=== PATIENT | male | born 1975 | race Caucasian/White ===

== ENCOUNTER 2017-07-11 15:48 | Emergency (ER) | payer OTHER ==
--- NOTE | 2017-07-11 16:16 | UC ---
Dental HPI - HPI Summary HPI Summary: Patient is an otherwise healthy 41-year-old male presenting to the with chief complaint of left lower molar erythema and drainage 5 days. He is unsure if the area is infected. Denies any fevers, sweats, chills. Denies any other symptoms. He is refusing vital signs on arrival. Has not been using any medication [id number] for relief. - History of Current Complaint Hx Obtained From: Patient Onset/Duration: Sudden Onset Severity: Mild Pain Intensity: 0 Pain Scale Used: 0-10 Numeric Related History: Swelling <Mary Lisa - Last Filed: 07/11/17 16:12> <Nikki Mooney - Last Filed: 07/11/17 16:39> - History of Current Complaint Chief Complaint: UCDentalProblem Stated Complaint: DENTAL COMPLAINT Time Seen by Provider: 07/11/17 15:51 - Allergies/Home Medications Allergies/Adverse Reactions: Allergies Allergy/AdvReac Type Severity Reaction Status Date / Time No Known Allergies Allergy Verified 07/11/17 16:00 PMH/Surg Hx/FS Hx/Imm Hx Previously Healthy: Yes - Surgical History Surgical History: None - Social History Occupation: Employed Full-time Lives: With Family Alcohol Use: None Substance Use Type: None Smoking Status (MU): Light Every Day Tobacco Smoker Type: Cigarettes Amount Used/How Often: 6 cigs/day Length of Time of Smoking/Using Tobacco: 10+ years Have You Smoked in the Last Year: Yes Household Exposure Type: Cigarettes - Immunization History Most Recent Tetanus Shot: 2010 <Mary Lisa - Last Filed: 07/11/17 16:12> Review of Systems Constitutional: Negative Skin: Negative Respiratory: Negative Cardiovascular: Negative Neurovascular: Negative Musculoskeletal: Negative Neurological: Negative Psychological: Negative Is Patient Immunocompromised?: No All Other Systems Reviewed And Are Negative: Yes <Mary Lisa - Last Filed: 07/11/17 16:12> Physical Exam Triage Information Reviewed: Yes Appearance: Well-Appearing, Well-Nourished Vital Signs Reviewed: Yes Eye Exam: Normal Eyes: Positive: Conjunctiva Clear ENT: Positive: Dental tenderness, Uvula midline. Negative: Tonsillar swelling, Tonsillar exudate, Sinus tenderness Dental Exam: Normal Neck exam: Normal Neck: Positive: Supple Respiratory Exam: Normal Respiratory: Positive: Chest non-tender Cardiovascular Exam: Normal Musculoskeletal Exam: Normal Musculoskeletal: Positive: Strength Intact Psychological: Positive: Normal Response To Family Skin Exam: Normal <Mary Lisa Nelida Yenifer Last Filed: 07/11/17 16:12> Dental Complaint Course/Dx - Course Course Of Treatment: There is a 1 cm in length ulceration to the left lower gumline just inferior to the left molars. There is no drainage identified. Erythema surrounding the area. This does not appear to be an aphthous ulcer, but rather a bacterial infection. Denies any fevers, sweats, chills. Patient is given penicillin upon request. - Differential Dx/Diagnosis Provider Diagnoses: Dental abscess <Sloan,Mary Krasue - Last Filed: 07/11/17 16:12> Discharge - Sign-Out/Discharge Documenting (check all that apply): Discharge/Admit/Transfer - Billing Disposition and Condition Condition: STABLE Disposition: HOME <Mary Lisa - Last Filed: 07/11/17 16:12> - Billing Disposition and Condition Condition: STABLE Disposition: HOME <Nikki Mooney - Last Filed: 07/11/17 16:39> - Discharge Plan Condition: Stable Disposition: HOME Prescriptions: Penicillin VK 500 MG TAB(NF) [Penicillin VK 500 mg Tab(NF)] 500 mg PO BID #10 tab MDD 4 Patient Education Materials: Dental Abscess (ED) Forms: *Work Release Referrals: No Primary Care Phys,NOPCP [Primary Care Provider] - Additional Instructions: Salt water rinses Antibiotic as prescribed Attestation Statement User Type: Provider - I was available for consult. This patient was seen by the [facility]ORGAN. The patient was not presented to, seen by, or examined by me. -Alonzo <Nikki Mooney - Last Filed: 07/11/17 16:39>
== END 2017-07-11 16:15 | disposition home or self-care (01) ==
LOC: UCEAST 15:48
DX: K04.7 Periapical abscess without sinus (principal); F17.210 Nicotine dependence, cigarettes, uncomplicated
CPT/HCPCS: 99202; G0463

== ENCOUNTER 2017-10-04 12:28 | Emergency (ER) | payer SELFPAY ==
[2017-10-04 12:40] VITALS: BP 00/00
--- NOTE | 2017-10-04 13:54 | UC ---
Skin Complaint HPI - HPI Summary HPI Summary: The patient is a 42-year-old male with a history of a rash on his trunk and arms times days. H he has recently started using a new detergent. She is pruritic. He has had no fever or chills or URI symptoms. E states that he is a long history of sensitive skin and often develops similar rashes. Is no chest pain shortness of breath or headache. - History of Current Complaint Chief Complaint: UCRas Time Seen by Provider: 10/04/17 13:45 Stated Complaint: RASH Hx Obtained From: Patient Onset/Duration: Gradual Onset Onset Severity: Mild Current Severity: Mild Pain Intensity: 0 Pain Scale Used: 0-10 Numeric Character: Pruritus, Redness, Raised Associated Signs & Symptoms: Positive: Rash - Allergy/Home Medications Allergies/Adverse Reactions: Allergies Allergy/AdvReac Type Severity Reaction Status Date / Time No Known Allergies Allergy Verified 10/04/17 12:41 Review of Systems Constitutional: Negative Skin: Rash Eyes: Negative ENT: Negative Respiratory: Negative Cardiovascular: Negative Gastrointestinal: Negative Genitourinary: Negative Motor: Negative Neurovascular: Negative Musculoskeletal: Negative Neurological: Negative Psychological: Negative Is Patient Immunocompromised?: No All Other Systems Reviewed And Are Negative: Yes PMH/Surg Hx/FS Hx/Imm Hx Previously Healthy: Yes - Surgical History Surgical History: None - Family History Known Family History: Positive: Hypertension - Social History Alcohol Use: None Substance Use Type: None Smoking Status (MU): Light Every Day Tobacco Smoker Type: Cigarettes Amount Used/How Often: 6 cigs/day Length of Time of Smoking/Using Tobacco: 10+ years Have You Smoked in the Last Year: Yes Household Exposure Type: Cigarettes - Immunization History Most Recent Tetanus Shot: 2010 Physical Exam Triage Information Reviewed: Yes Appearance: Well-Appearing, No Pain Distress, Well-Nourished Vital Signs: Initial Vital Signs Temp 0 F 10/04/17 12:36 Pulse 0 10/04/17 12:36 Resp 0 10/04/17 12:36 BP 00/00 10/04/17 12:36 Pulse Ox 0 10/04/17 12:36 Vital Signs Reviewed: Yes Eyes: Positive: Conjunctiva Clear ENT: Positive: Pharynx normal, Pharyngeal erythema, Nasal congestion, TMs normal Neck: Positive: Supple, Nontender Respiratory: Positive: Lungs clear, Normal breath sounds, No respiratory distress, No accessory muscle use Cardiovascular: Positive: RRR. Negative: Tachycardia, Bradycardia Bowel Sounds: Positive: Present Musculoskeletal: Positive: ROM Intact, No Edema Neurological: Positive: Alert Psychological Exam: Normal Skin Exam: Other - fine red papules Course/Dx - Course Course Of Treatment: refused VS - Diagnoses Provider Diagnoses: acute fine papular rash Discharge - Sign-Out/Discharge Documenting (check all that apply): Patient Departure - Discharge Plan Condition: Stable Disposition: HOME Prescriptions: predniSONE [Deltasone 20 MG TAB] 40 mg PO DAILY #14 tab Patient Education Materials: Acute Rash (ED) Referrals: No Primary Care Phys,NOPCP [Primary Care Provider] - Additional Instructions: recheck for new or worsening symptoms recheck in 4days if not improved - Billing Disposition and Condition Condition: STABLE Disposition: Home
== END 2017-10-04 13:56 | disposition home or self-care (01) ==
LOC: UCEAST 12:28
DX: R21 Rash and other nonspecific skin eruption (principal); Z82.49 Family history of ischemic heart disease and other diseases of the circulatory system; F17.210 Nicotine dependence, cigarettes, uncomplicated
CPT/HCPCS: 99212; G0463

== ENCOUNTER 2018-03-26 15:38 | Emergency (ER) | payer BC ==
[2018-03-26 15:47] VITALS: BP 126/76
--- NOTE | 2018-03-26 16:31 | UC ---
Throat Pain/Nasal Akhil HPI - HPI Summary HPI Summary: Patient presents to urgent care reporting had "cold" Pt state he felt better x 3days. X 2 days pt has increased sinus congestion, PND, and cough. Pt states coughing worse at night. States has a "very old" inhaler and it doesn't work. Pt denies fever, chills. No cp, sob except with coughing. Pt states coughing up green phelgm - unsure if from sinuses or lungs. PT does not blow nose, but is clearing throat a lot. + h/o asthma + tobacco no flu vaccine pt's medications reviewed this visit - History of Current Complaint Chief Complaint: UCRespiratory Stated Complaint: COUGH Time Seen by Provider: 03/26/18 16:03 Hx Obtained From: Patient Onset/Duration: Gradual Onset Severity: Mild Pain Intensity: 2 Pain Scale Used: 0-10 Numeric Cough: Sputum Appears - green Associated Signs & Symptoms: Positive: Wheezing, Sinus Discomfort, Nasal Discharge - Allergies/Home Medications Allergies/Adverse Reactions: Allergies Allergy/AdvReac Type Severity Reaction Status Date / Time No Known Allergies Allergy Verified 03/26/18 15:48 PMH/Surg Hx/FS Hx/Imm Hx Previously Healthy: Yes Respiratory History: Asthma - Surgical History Surgical History: None Surgery Procedure, Year, and Place: denies - Family History Known Family History: Positive: Hypertension - Social History Alcohol Use: None Substance Use Type: None Smoking Status (MU): Light Every Day Tobacco Smoker Type: Cigarettes Amount Used/How Often: 6 cigs/day Length of Time of Smoking/Using Tobacco: 10+ years Have You Smoked in the Last Year: Yes Household Exposure Type: Cigarettes - Immunization History Most Recent Tetanus Shot: 2010 Review of Systems All Other Systems Reviewed And Are Negative: Yes Constitutional: Positive: Fever, Fatigue ENT: Positive: Nasal Discharge, Sinus Congestion, Sinus Pain/Tenderness Respiratory: Positive: Cough Physical Exam - Summary Physical Exam Summary: Vital Signs Reviewed: Yes A+Ox3, no distress Eyes: Conjunctiva Clear, WAYNE. EOM intact and full ENT: Hearing grossly normal TM blocked with cerumen b/l - unable to visualize; turbinates inflammed and boggy + thick PND/yellow; pt clearing throat, mmmoist , uvula midline, no exudate, no erythema Neck: Positive: Supple Respiratory: Positive: No respiratory distress, No accessory muscle use + CTA throughout no w/r Cardiovascular: RRR nl s1, s2 no m/r CBT <2 sec abd soft + BS nt/nd no guarding, no distension Musculoskeletal Exam: MITCHELL x 4 without difficulty Strength Intact, ROM Intact Neurological: Positive: Alert, + sensation throughout Psychological: Positive: Normal Response To Family Skin: Positive: no rash, no ecchymosis Vital Signs: Initial Vital Signs Temp 99.0 F 03/26/18 15:43 Pulse 92 03/26/18 15:43 Resp 18 03/26/18 15:43 BP 126/76 03/26/18 15:43 Pulse Ox 98 03/26/18 15:43 Throat Pain/Nasal Course/Dx - Course Course Of Treatment: Patient with head cold improved. Patient now with return of head cold, low-grade fevers. Patient has had a history of asthma as well as tobacco use. On exam patient with thick sinus congestion with yellow-green posterior drip. Patient with mild rare cough. Lungs are clear. Vital signs are stable. Discussed with patient likely sinus cause of cough. Will refill albuterol as patient's is old and . Antibiotic. Discussed secretion precaution, humidified air. Patient has used Mucinex with good results in past - encouraged use again. Return precautions. Work note. Patient comfortable in agreement with plan. Pt with cerumen impaction bilaterally - declined offer for irrigation - will do at home - Differential Dx/Diagnosis Provider Diagnosis: Rhinosinusitis, Impacted cerumen of both ears Discharge - Sign-Out/Discharge Documenting (check all that apply): Patient Departure All imaging exams completed and their final reports reviewed: No Studies - Discharge Plan Condition: Stable Disposition: HOME Prescriptions: Albuterol HFA INHALER* [Ventolin HFA Inhaler*] 2 puff INH Q4H PRN #1 mdi PRN Reason: wheeze Amoxicillin PO (*) [Amoxicillin 875 MG (*)] 875 mg PO BID #20 tab Patient Education Materials: Rhinosinusitis (ED) Forms: *Gen. Provider Communication, *Work Release Referrals: [facility] [Outside] No Primary Care Phys,NOPCP [Primary Care Provider] - Additional Instructions: - Stay well hydrated. Drink plenty of non-alcoholic, non-caffinated beverages. - Alternate ibuprofen (Advil, Motrin) 600mg and Tylenol every 3 hours for pain or fever. Take with food. Do NOT take for more than 4-5 days. - These infections are spread by secretions - do NOT share eating or drinking utensils - clean items you share with other people such as cell phones, computer mouse, TV remote, computer tablets,etc. Once you have been antibiotics for 2 days, change your toothbrush and your pillowcase. - get plenty of restful sleep - humidify the air in the room where you sleep - boil water, run a hot steam shower, vaporizer, cups of water by heat register - okay to take over the counter decongestant and cough medication - use your inhaler as needed for wheeze - contact your doctor or return with questions or concerns - Billing Disposition and Condition Condition: STABLE Disposition: Home
== END 2018-03-26 16:30 | disposition home or self-care (01) ==
LOC: UCEAST 15:38
DX: J32.9 Chronic sinusitis, unspecified (principal); H61.23 Impacted cerumen, bilateral; F17.210 Nicotine dependence, cigarettes, uncomplicated
CPT/HCPCS: 99212; G0463

== ENCOUNTER 2018-12-24 15:17 | Emergency (ER) | payer BC ==
[2018-12-24 16:13] VITALS: BP 132/83
--- NOTE | 2018-12-24 17:07 | UC ---
Dental HPI - HPI Summary HPI Summary: 43 yo male presents with left lower tooth pain. He tells me that he knows he has bad teeth and yesterday developed some left lower tooth pain and swelling that is worse today. He called his dentist and has an appointment for 01/02, but they recommended he be seen to be started on antibiotics. He tells me that he has had an abscess here in the past and it resolved with amoxicillin. He is eating and drinking well. Denies fever or chills - History of Current Complaint Chief Complaint: UCDentalProblem Stated Complaint: TOOTHACHE Time Seen by Provider: 12/24/18 17:06 Hx Obtained From: Patient Onset/Duration: Sudden Onset Severity: Moderate Pain Intensity: 5 Pain Scale Used: 0-10 Numeric - Allergies/Home Medications Allergies/Adverse Reactions: Allergies Allergy/AdvReac Type Severity Reaction Status Date / Time environmental Allergy Eyes Uncoded 12/24/18 16:13 Itchy/Swollen/Red/Watery Home Medications: Home Medications Ibuprofen [Addaprin] 600 mg PO ONCE PRN 12/24/18 [History Confirmed 12/24/18] Melatonin 1 tab PO DAILY PRN 12/24/18 [History Confirmed 12/24/18] Tumeric 1 tab PO DAILY 12/24/18 [History Confirmed 12/24/18] Valerian Root 1 tab PO DAILY PRN 12/24/18 [History Confirmed 12/24/18] diphenhydrAMINE HCl [Benadryl Allergy] 1 tab PO QPM PRN 12/24/18 [History Confirmed 12/24/18] PMH/Surg Hx/FS Hx/Imm Hx Respiratory History: Asthma - Surgical History Surgical History: None Surgery Procedure, Year, and Place: denies - Family History Known Family History: Positive: Hypertension - Social History Lives: With Family Alcohol Use: None Substance Use Type: Prescribed Substance Use Comment - Amount & Last Used: suboxone Smoking Status (MU): Light Every Day Tobacco Smoker Type: Cigarettes Amount Used/How Often: 6 cigs/day Length of Time of Smoking/Using Tobacco: 10+ years Have You Smoked in the Last Year: Yes Household Exposure Type: Cigarettes - Immunization History Most Recent Tetanus Shot: 2010 Review of Systems All Other Systems Reviewed And Are Negative: No Constitutional: Positive: Negative Skin: Positive: Negative Eyes: Positive: Negative ENT: Positive: Dental Pain Respiratory: Positive: Negative Cardiovascular: Positive: Negative Neurological: Positive: Negative Psychological: Positive: Negative Physical Exam - Summary Physical Exam Summary: GENERAL: NAD. WDWN. No pain distress. SKIN: No rashes, sores, lesions, or open wounds. HEENT: Ears: Hearing grossly normal. TMs intact, no bulging, erythema, or edema. Nose: Nasal mucosa pink and moist. NTTP maxillary and frontal sinus. Throat: Posterior oropharynx without exudates, erythema, or tonsillar enlargement. Uvula midline. NECK: Supple. Nontender. No lymphadenopathy. CHEST: No accessory muscle use. Breathing comfortably and in no distress. CV: Pulses intact. Cap refill <2seconds NEURO: Alert. PSYCH: Age appropriate behavior. Triage Information Reviewed: Yes Vital Signs: Initial Vital Signs Temp 98.4 F 12/24/18 16:10 Pulse 69 12/24/18 16:10 Resp 18 12/24/18 16:10 BP 132/83 12/24/18 16:10 Pulse Ox 100 12/24/18 16:10 Vital Signs Reviewed: Yes Dental: Positive: Percussion Tenderness @ - Tooth #19, Gross Decay/Caries @ - Tooth #19, Abscess @ - Tooth #19. Negative: Dental Fracture @, Cellulitis @, Cervical Lymphadenopathy, Bleeding Dental Complaint Course/Dx - Course Course Of Treatment: Tooth #19 abscess - Differential Dx/Diagnosis Provider Diagnosis: Dental abscess Discharge ED - Sign-Out/Discharge Documenting (check all that apply): Patient Departure All imaging exams completed and their final reports reviewed: No Studies - Discharge Plan Condition: Stable Disposition: HOME Prescriptions: Amoxicillin PO (*) [Amoxicillin 500 MG CAP*] 500 mg PO Q12H #14 cap Ibuprofen TAB* [Motrin TAB* 800 MG] 800 mg PO Q6H PRN #30 tab PRN Reason: Pain - Moderate Patient Education Materials: Dental Abscess (ED) Referrals: No Primary Care Phys,NOPCP [Primary Care Provider] - Additional Instructions: If you develop a fever, shortness of breath, chest pain, new or worsening symptoms - please call your PCP or go to the ED immediately. - Billing Disposition and Condition Condition: STABLE Disposition: Home - Attestation Statements Provider Attestation: Per institutional requirements, I have reviewed the chart, however, I was not consulted specifically or made aware of this patient by the midlevel provider. I did not personally evaluate, interact with , or disposition this patient.
== END 2018-12-24 17:24 | disposition home or self-care (01) ==
LOC: UCEAST 15:17
DX: K04.7 Periapical abscess without sinus (principal); F17.210 Nicotine dependence, cigarettes, uncomplicated; J45.909 Unspecified asthma, uncomplicated; Z88.8 Allergy status to other drugs, medicaments and biological substances; Z91.09 Other allergy status, other than to drugs and biological substances
CPT/HCPCS: 99212; G0463

== ENCOUNTER 2019-01-24 07:46 | Emergency (ER) | payer BC ==
[2019-01-24 07:59] VITALS: BP 148/79
--- NOTE | 2019-01-24 08:24 | UC ---
UC Dental HPI - HPI Summary HPI Summary: 43 yo male with dental pain and swelling x 2 days unable to see dentist due to ins no n/v/d - History of Current Complaint Chief Complaint: UCDentalProblem Stated Complaint: DENTAL PAIN Time Seen by Provider: 01/24/19 08:22 Hx Obtained From: Patient Onset/Duration: Gradual Onset Severity: Severe Pain Intensity: 8 Pain Scale Used: 0-10 Numeric Aggravating Factor(s): Chewing Alleviating Factor(s): Nothing Related History: Previous Dental Care on Same Tooth, Swelling Dental: 1 - abscess - Allergies/Home Medications Allergies/Adverse Reactions: Allergies Allergy/AdvReac Type Severity Reaction Status Date / Time environmental Allergy Eyes Uncoded 01/24/19 07:59 Itchy/Swollen/Red/Watery Home Medications: Home Medications Buprenorp/Nalox 8-2 MG FILM [Suboxone 8 mg-2 mg Sl Film] 3 each SL BID 01/24/19 [History Confirmed 01/24/19] PMH/Surg Hx/FS Hx/Imm Hx Previously Healthy: Yes Psychological History: Other Other Psychological History: opiate abuse - Surgical History Surgical History: None Surgery Procedure, Year, and Place: denies - Family History Known Family History: Positive: Hypertension - Social History Alcohol Use: None Substance Use Type: None Substance Use Comment - Amount & Last Used: suboxone Smoking Status (MU): Light Every Day Tobacco Smoker Type: Cigarettes Amount Used/How Often: 6 cigs/day Length of Time of Smoking/Using Tobacco: 10+ years Have You Smoked in the Last Year: Yes Household Exposure Type: Cigarettes - Immunization History Most Recent Tetanus Shot: 2010 Review of Systems All Other Systems Reviewed And Are Negative: Yes Constitutional: Positive: Negative Skin: Positive: Negative Eyes: Positive: Negative ENT: Positive: Dental Pain Respiratory: Positive: Negative Cardiovascular: Positive: Negative Gastrointestinal: Positive: Negative Genitourinary: Positive: Negative Motor: Positive: Negative Neurovascular: Positive: Negative Musculoskeletal: Positive: Negative Neurological: Positive: Negative Psychological: Positive: Negative Physical Exam Triage Information Reviewed: Yes Appearance: Well-Appearing, No Pain Distress, Well-Nourished Vital Signs: Initial Vital Signs Temp 100.0 F 01/24/19 07:54 Pulse 77 01/24/19 07:54 Resp 18 01/24/19 07:54 BP 148/79 01/24/19 07:54 Pulse Ox 97 01/24/19 07:54 Vital Signs Reviewed: Yes Eyes: Positive: Conjunctiva Clear ENT: Positive: Hearing grossly normal, Dental tenderness, Uvula midline. Negative: Pharyngeal erythema, Nasal congestion, Tonsillar swelling, Tonsillar exudate Dental: Positive: Other: - see image Neck: Positive: Supple, Nontender, Enlarged Nodes @ - left submandibular Respiratory: Positive: Lungs clear, Normal breath sounds, No respiratory distress, No accessory muscle use Cardiovascular: Positive: RRR, No Murmur Musculoskeletal: Positive: ROM Intact, No Edema Neurological: Positive: Alert Psychological Exam: Normal Skin Exam: Normal Dental Complaint Course/Dx - Differential Dx/Diagnosis Provider Diagnosis: Dental abscess Discharge ED - Sign-Out/Discharge Documenting (check all that apply): Patient Departure All imaging exams completed and their final reports reviewed: No Studies - Discharge Plan Condition: Stable Disposition: HOME Prescriptions: Penicillin VK 500 MG TAB(NF) [Penicillin VK 500 mg Tab] 500 mg PO QID #28 tab Patient Education Materials: Dental Abscess (ED) Referrals: No Primary Care Phys,NOPCP [Primary Care Provider] - [facility] [Outside] (BP needs following ...recheck in 2-20 weeks) Additional Instructions: warm compresses try to get in to see a dentist recheck in 2-3 days if not improved - Billing Disposition and Condition Condition: STABLE Disposition: Home
[2019-01-24] MEDS ORDERED: Penicillin VK TAB* 250 MG PO ONE (08:29)
== END 2019-01-24 08:38 | disposition home or self-care (01) ==
LOC: UCEAST 07:46
DX: K04.7 Periapical abscess without sinus (principal); F11.10 Opioid abuse, uncomplicated; F17.210 Nicotine dependence, cigarettes, uncomplicated; Z91.09 Other allergy status, other than to drugs and biological substances
CPT/HCPCS: 99212; A9270-GY; G0463

== ENCOUNTER 2019-03-19 21:26 | Emergency (ER) | payer BC ==
[2019-03-19] MEDS ORDERED: Fluorescein Sodium TOPICAL* 1 MG TEST STRIP OPHTHALMIC ONE (22:06)
[2019-03-19] MEDS ORDERED: Tetracaine 0.5% OPTH.SOL 4 ML* 1 DROP BTL ONE (22:06)
--- NOTE | 2019-03-19 22:41 | ED ---
Throat Pain/Nasal Congestion - HPI Summary HPI Summary: 43-year-old male presents with potential foreign body in his left eye. He states that he was grinding metal on Monday when he felt the pain. He states his rinsed his eye out and got a metal piece out. He denies any change in vision. he states that his eye has been tearing. He states he feels like a foreign body in the left upper eyelid. Doesn't wear glasses or contacts. Unsure last tetanus is. Has no medical conditions. - History of Current Complaint Chief Complaint: EDEyeProblem Time Seen by Provider: 03/19/19 21:52 - Allergies/Home Medications Allergies/Adverse Reactions: Allergies Allergy/AdvReac Type Severity Reaction Status Date / Time environmental Allergy Eyes Uncoded 01/24/19 07:59 Itchy/Swollen/Red/Watery PMH/Surg Hx/FS Hx/Imm Hx Endocrine/Hematology History: Denies: Hx Diabetes, Hx Thyroid Disease Cardiovascular History: Denies: Hx Hypertension Respiratory History: Reports: Hx Asthma Denies: Hx Chronic Obstructive Pulmonary Disease (COPD) GI History: Denies: Hx Ulcer - Surgical History Surgery Procedure, Year, and Place: denies Infectious Disease History: No Infectious Disease History: Denies: Hx Clostridium Difficile, Hx Hepatitis, Hx Human Immunodeficiency Virus (HIV), Hx of Known/Suspected MRSA, Hx Shingles, Hx Tuberculosis, Hx Known/ Suspected VRE, Hx Known/Suspected VRSA, History Other Infectious Disease, Traveled Outside the [place] in Last 30 Days - Family History Known Family History: Positive: Hypertension - Social History Alcohol Use: None Substance Use Type: Reports: None Substance Use Comment - Amount & Last Used: suboxone Smoking Status (MU): Light Every Day Tobacco Smoker Type: Cigarettes Amount Used/How Often: 6 cigs/day Length of Time of Smoking/Using Tobacco: 10+ years Have You Smoked in the Last Year: Yes Review of Systems Negative: Fever Positive: Other - foreign body left eye Negative: Chest Pain Negative: Shortness Of Breath All Other Systems Reviewed And Are Negative: Yes Physical Exam Triage Information Reviewed: Yes Vital Signs On Initial Exam: Initial Vitals Temp Pulse Resp BP Pulse Ox 99.6 F 90 16 150/92 99 03/19/19 21:28 03/19/19 21:28 03/19/19 21:28 03/19/19 21:28 03/19/19 21:28 Vital Signs Reviewed: Yes Appearance: Positive: Well-Appearing Skin: Positive: Warm, Dry Head/Face: Positive: Normal Head/Face Inspection Eyes: Positive: Normal, EOMI, WAYNE, Conjunctiva Inflammed, Other: - no foreign body seen, no uptake on fluroscein exam ENT: Positive: Pharynx normal, TMs normal Respiratory/Lung Sounds: Positive: Clear to Auscultation, Breath Sounds Present Cardiovascular: Positive: Normal, RRR Musculoskeletal: Positive: Normal Neurological: Positive: Normal Psychiatric: Positive: Normal Procedures - Sedation Patient Received Moderate/Deep Sedation with Procedure: No - Eye Procedure left Alcaine Drops Administered: Yes - no uptake on fluroscein on exam Eye FB Removal: no removal w/ cotton swab Diagnostics - Vital Signs Vital Signs Temp Pulse Resp BP Pulse Ox 03/19/19 21:28 99.6 F 90 16 150/92 99 - Laboratory Lab Statement: Any lab studies that have been ordered have been reviewed, and results considered in the medical decision making process. EENT Course/Dx - Course Course Of Treatment: 43-year-old male presents with potential foreign body in his left eye. He states that he was grinding metal on Monday when he felt the pain. He states his rinsed his eye out and got a metal piece out. He denies any change in vision. he states that his eye has been tearing. He states he feels like a foreign body in the left upper eyelid. Doesn't wear glasses or contacts. Unsure last tetanus is. Has no medical conditions. On exam has injected conjunctivitis of left eye. No foreign body seen. No uptake on fluorescein exam. use qtip on area where patient had the pain and no foreign body found. nanette lens was attempted. Will have follow up with optho. Placed on prophylactic antibiotics. Gave tetanus. Patient understands and agrees the plan. - Differential Diagnoses Differential Diagnoses: Conjunctivitis, Corneal Abrasion, Foreign Body - Diagnoses Provider Diagnoses: Left eye pain Discharge ED - Sign-Out/Discharge Documenting (check all that apply): Patient Departure - Discharge Plan Condition: Good Disposition: HOME Patient Education Materials: Eye Foreign Body (ED) Referrals: No Primary Care Phys,NOPCP [Primary Care Provider] - Geovany Caldera MD [Medical Doctor] - Additional Instructions: follow up with optho Take drops four times a day for 5 days use saline rinses Return to ED if develop any new or worsening symptoms - Billing Disposition and Condition Condition: GOOD Disposition: Home
[2019-03-19] MEDS ORDERED: Polymyx/Trimethoprim OPTH* 10 ML BTL LEFT EYE ONE (23:45)
[2019-03-19] MEDS ORDERED: Tetan/Diph/Pertus SYR(Tdap)* 0.5 ML SYR(BOOSTRIX) use SYR contains LATEX IM ONE (23:48)
[2019-03-20 00:56] VITALS: BP 131/88
== END 2019-03-20 00:54 | disposition home or self-care (01) ==
LOC: ED 21:26
DX: T15.92XA Foreign body on external eye, part unspecified, left eye, initial encounter (principal); F17.210 Nicotine dependence, cigarettes, uncomplicated
CPT/HCPCS: 90471; 90715; 99282; A9270-GY